=== PATIENT | male | born 1985 | race African-American/Black ===

== ENCOUNTER 2017-01-05 01:39 | Observation (INO) | payer MEDICAID ==
[~2017-01-05 01:39] MED LIST: B-1100 M1 PO; COLACE100 M1 PO; FOLIC ACID1 M1 PO; MULTIVITAMINS1 EAC1 PO; NICOTINE PATCH1 EACH TD; NO HOME MEDICATION XX; PERCOCET 5-3251 EACH PO; PROMETHAZINE12.5 M2 PO; ULTRAM50 M1 PO; ZOFRAN4 M2 PO
[2017-01-05] MEDS ORDERED: NO HOME MEDICATION XX (01:46)
[2017-01-05 02:46] LABS: BASO % 0.1 % (0-2); EOS % 0.3 % (0-7); HCT-HEMATOCRIT 36.4 % (36.0-53.5); IMMATURE GRANULOCYTES ABSOLUTE 0.02 tho/cmm (0-0.03); IMMATURE GRANULOCYTES PERCENT 0.3 % (0-0.3); LYMPH % 27.2 % (20-45); LYMPH ABSOLUTE COUNT 1.9 tho/cmm (0.8-4.5); MCH (MEAN CORPUSCULAR HGB) 23.5 pg (28.0-32.0); MCHC MEAN CORPUSCULAR HGB CONC 35.7 % (32.0-36.0); MCV (MEAN CELL VOLUME) 65.7 fl (82.0-96.0); MONOCYTE ABSOLUTE COUNT 0.6 tho/cmm (0.0-1.2); NEUTROPHIL ABSOLUTE COUNT 4.4 tho/cmm (1.6-8.0); NEUTROPHIL-AUTOMATED 4.4 tho/cmm (1.6-8.0); NEUTROPHILS % 63.1 % (40-80); PLATELET COUNT 285 tho/cmm (150-450); RED BLOOD COUNT 5.54 mil/cmm (4.40-5.70)
[2017-01-05 02:58] LABS: PROTHROMBIN TIME 11.4 SECONDS (9.0-13.6)
[2017-01-05 03:01] LABS: ALB/GLOB RATIO 0.9 (0.8-2.0); ALBUMIN 3.9 g/dl (3.5-5.0); ALCOHOL (ETOH) 27 mg/dl (<10); ALKALINE PHOSPHATASE 127 U/L (33-138); ALT/SGPT 209 U/L (12-78); ANION GAP 16 mmol/L (0-20); AST/SGOT 252 U/L (10-40); BILIRUBIN,TOTAL 0.5 mg/dl (0.0-1.5); BLOOD UREA NITROGEN 4 mg/dl (6-24); CALCIUM 9.1 mg/dl (8.5-10.5); CARBON DIOXIDE-VENOUS 25 mmol/L (22-32); CHLORIDE 101 mmol/l (96-110); CREATININE 0.75 mg/dl (0.60-1.30); GLUCOSE 96 mg/dL (70-110); LIPASE 332 U/L (73-393); POTASSIUM 3.8 mmol/L (3.7-5.1); SODIUM 138 mmol/L (135-145); eGFR VALUE FOR BLACK >90 mL/Min
[2017-01-05 03:59] LABS: URINE BILIRUBIN NEGATIVE (NEG); URINE BLOOD SMALL (NEG); URINE GLUCOSE (UA) NEGATIVE (NEG); URINE KETONE SMALL (NEG); URINE LEUKOCYTE ESTERASE POSITIVE (NEG); URINE NITRITE NEGATIVE (NEG); URINE PROTEIN MODERATE (NEG)
[2017-01-05 04:04] LABS: URINE APPEARANCE CLOUDY; URINE COLOR YELLOW
[2017-01-05 04:07] LABS: URINE EPITHELIAL CELLS 0 /[HPF] (0-10); URINE MUCUS 1+
[2017-01-05 04:59] LABS: C-REACTIVE PROTEIN 0.4 mg/dl (0-0.9); MAGNESIUM 1.7 mg/dl (1.8-2.6)
[2017-01-05 05:18] LABS: PHOSPHOROUS 3.1 mg/dl (2.5-4.9)
[2017-01-05 05:24] LABS: SALICYLATE 3.7 mg/dl (2.8-20)
[2017-01-05 05:56] LABS: OSMOLALITY 288 mOsm/kg (275-295)
[2017-01-05 06:13] LABS: ACETAMINOPHEN LEVEL <2.1 ug/ml (10-30)
[2017-06-19] MEDS ORDERED: NORCO 5-325 TA1 EACH PO (16:20)
== END 2017-01-05 19:28 | disposition other institution (70) ==
LOC: EDMED 01:39 → EMR2 04:59 → 5WE 05:55
PROVIDERS: Emergency Medicine; Registered Nurse; ADMIT Hospitalist
PROC: 0DJ08ZZ Inspection of Upper Intestinal Tract, Via Natural or Artificial Opening Endoscopic (ICD-10-PCS; principal; 2017-01-05)
DX: K86.3 Pseudocyst of pancreas (principal); Z98.890 Other specified postprocedural states; K92.2 Gastrointestinal hemorrhage, unspecified; I10 Essential (primary) hypertension; R94.5 Abnormal results of liver function studies; E87.2 Acidosis; F19.10 Other psychoactive substance abuse, uncomplicated; F10.10 Alcohol abuse, uncomplicated
CPT/HCPCS: C9113; G0378; G0480; J2060; J2270; J2405; J3411; J7030; Q9967